=== PATIENT | female | born 1980 | race African-American/Black ===

== ENCOUNTER 2024-09-26 19:20 | Emergency (ER) | payer OTHER, MEDICAID, SELFPAY ==
--- NOTE | ~2024-09-26 | XR_ITS ---
3 VIEWS LUMBAR SPINE Ordering provider: Lawrence Baez MD History: . fall . Comparison: None. FINDINGS: VERTEBRAL BODIES: No visible fracture or subluxation. Possible spondylolysis at the level of L5-S1. DISK SPACES: Normal. SOFT TISSUES: Normal. IMPRESSION: No acute osseous abnormality lumbar spine. Reviewed, dictated and finalized at location A.
--- NOTE | ~2024-09-26 | XR_ITS ---
XR elbow RT min 3V Ordering provider: Lawrence Baez MD History: . fall . Comparison: None. FINDINGS: BONES: No acute fracture or dislocation. JOINT SPACES: Normal. SOFT TISSUES: Unremarkable. No definite joint effusion. IMPRESSION: No acute osseous abnormality of the right elbow. Reviewed, dictated and finalized at location A.
--- NOTE | 2024-09-26 19:43 | PC.NURSE ---
Patient in waiting room eating chips and drinking Tea while in her sitting in wheelchair
[2024-09-26 19:55] VITALS: BP 139/82; PULSE 75; RESP 16; TEMP 36.6; O2SAT 100
--- NOTE | 2024-09-26 20:01 | PC.NURSE ---
Patient noted to be again eating food from vending machine-another visitor obtained for her
--- NOTE | 2024-09-26 20:09 | PC.NURSE ---
Per ems report nightclub manager met us with security at the door of [facility] upon our arrival and told us that they had already watched the security footage and the patient sat down, then laid herself down on the floor. Pt did urinate on the floor while laying there. Pt also slept the entire way from [facility] to hospital and upon backing in to the ambulance bay pt woke up and said you all got any pain pills? You wouldnt believe the amounts of pain i'm in.
--- NOTE | 2024-09-26 20:10 | PC.NURSE ---
Patient visualized on security camera getting out of wheelchair without assistance and walking with steady gait into bathroom
--- NOTE | 2024-09-26 20:28 | PCCCNOTE ---
PT REQUESTED ALL THE PAIN PILLS NUMEROUS TIMES IN RADIOLOGY
--- NOTE | 2024-09-26 20:32 | PC.NURSE ---
Patient taken via wheelchair outside per her request
[2024-09-26 22:04] VITALS: BP 128/70; PULSE 83; RESP 18; O2SAT 100
--- OUTSIDE RECORDS SUMMARY | 2024-09-26 22:25 | XMS_ITS | Continuity of Care Document ---
Author Name Nino Prescott Address [address] [facility] [place] [address] Organization Unknown Address [address] [place] [address] Medications No known medications Problems No known problems
--- OUTSIDE RECORDS SUMMARY | 2024-09-26 22:25 | XMS_ITS ---
Author Organization [facility] Address [address] [place] [address] Care Team Providers Care Aerotriangulation Specialist Name Role Phone Toña Bowen Primary Care Provider REASON FOR VISIT New Patient Psych Eval Encounters Encounter Location Date Provider Diagnosis [address] [place] [address] 08/14/2024 Toña Bowen Plan Of Treatment No Information Progress Notes * Ingrid RENNEReDOB:1980 (43 yo M)Acc No.[id number]:08/14/2024 UNLOCKED PROGRESS NOTE Patient: Melinda GALDAMEZ Provider: ILDEFONSO Bowman, COMMUNICATIONS SUPERVISOR, MANAGER HUMAN RESOURCES-C :1980 A ge:43 Y S ex:Male Date:08/14/2024 Address:[address] [place], [place] [id number] Subjective: * Chief Complaints: * 1 . New Patient Psych Eval. * Medical History: Objective: * Vitals: Assessment: Plan: * Treatment: * * Electronic signature of Joshua Bowen [id number] on 09/26/2024 at 10:25 PM CDT Sign off status: Pending * Provider: ILDEFONSO Bowman, COMMUNICATIONS SUPERVISOR, MANAGER HUMAN RESOURCES-C Date: 0 08/14/2024 Generated for Printi ng/Falizabethg/eTransmitting on: 09/26/2024 10:25 PM CDT
--- OUTSIDE RECORDS SUMMARY | 2024-09-26 22:25 | XMS_ITS | Continuity of Care Document ---
Author Name PrescottNino Address [address] [place], [place] [id number] [place] [address] Organization Unknown Address [address] [place], [place] [id number] [place] [address] Medications No known medications Problems No known problems
--- OUTSIDE RECORDS SUMMARY | 2024-09-26 22:25 | XMS_ITS | Patient Health Record ---
Author Organization [facility] Address [address] [place] [address] Care Team Providers Care Saddle Tree Stitcher Name Role Phone AndrésToña godinez Primary Care Provider [phone] Adrian Harp Unavailable [phone] Mariza Canas Unavailable [phone] Reason For Referral No Information Medications Medication SIG (Take, Route, Fr equency, Duration) Notes Start Date End Date Status Sertraline HCl 50 MG 1 tablet Orally Onc e a day for 30 day(s) 09/09/2024 Active busPIRone HCl 7.5 MG 1 tablet Orally Twi ce a day for 30 days 09/09/2024 Active Problems Problem Type SNOMED Code ICD Code Onset Dates Problem Status W/U Status Risk Notes Problem Insomnia (113903955) Insomnia (G47.00) Active confirmed Problem Generalized anxiety disorder (84336272) ZULEIKA (generalized anxiety disorder) (F41.1) Active confirmed Problem Bipolar disorder (55385038) Bipolar 1 disorder, depressed (F31.9) Active confirmed Vital Signs Height 4ft 11in in 09/09/2024 Weight 189 lbs 09/09/2024 BMI 38.17 kg/m2 09/09/2024 Encounters Encounter Location Date Provider Diagnosis [address] [place] [address] 09/09/2024 Mariza Canas Bipolar 1 disorder, depressed F31.9 ; ZULEIKA (generalized anxiety disorder) F41.1 ; Insomnia G47.00 and Homelessness Z59.[address] [place] [address] 08/14/2024 Toña Bowen Assessments Encounter Date Diagnosis (ICD Code) Assessment Notes Treatment Notes Treatment Clinical Notes Section Notes 09/09/2024 ZULEIKA (generalized anxiety disorder) (ICD-10 - F41.1) 09/09/2024 Bipolar 1 disorder, depressed (ICD-10 - F31.9) 09/09/2024 Insomnia (ICD-10 - G47.00) 09/09/2024 Homelessness (ICD-10 - Z59.00) Plan Of Treatment No Information Insurance Providers Payer Name Payer Address Payer Phone Subscriber Number Group Number Insured Name Patient Relationship to Insured Coverage Start Date Coverage End Date [facility] Claims Department [address] [place] [phone] [id number] Melinda Sidhu Self - patient is the insured 3 [place] [employer] [facility] [employer] [facility] [address] [place] [phone] [id number] Melinda Sidhu Self - patient is the insured 3 Medical (General) History Medical History History ICD Code bipolar anxiety depression Surgical History Surgery Date(Month/Year) retna r eye nose surgy Hospitalization History Reason Date(Month/Year) [facility]chette 1wk Mental eval [facility] SI mental eval
--- NOTE | 2024-09-26 22:32 | ED.FALL ---
HPI - Fall General Chief Complaint: Fall Stated Complaint: Fall, injury to lower back and right elbow Time Seen by Provider: 09/26/24 22:12 History of Present Illness HPI Narrative: 43-year-old female presenting to the emergency department after a reported fall. Patient states that she was at [employer] and slipped on a wet patch and fell onto her butt and elbow. Supposedly police were involved as video footage was obtained of the accident because patient was complaining and want this to file a lawsuit and video food was reviewed by EMS and PD and they saw the patient had voluntary to lie down on the ground and then waited for someone to come respond to her, but there was no actual fall or any injury. Patient herself is complaining of back pain and right elbow pain as well as also having extra complaint of potential STD exposure. She is concerned that her boyfriend is cheating on her and she is having vaginal discharge. Denies any . Did not take anything for pain prior to arrival. She has asked for pain pills numerous times to multiple staff members and EMS. Patient is ambulatory here in the emergency department, no signs of any significant injury, no incontinence or neurological complaints. Related Data Allergies Allergy/AdvReac Type Severity Reaction Status Date / Time No Known Allergies Allergy Verified 09/26/24 22:05 Review of Systems Review of Systems: As reviewed above in HPI Exam Narrative: GENERAL: [Well-appearing, well-nourished, and in no acute distress.] HEAD: [Normocephalic, atraumatic.] EYES: [PERRLA and EOMI.] ENT: Nares clear, no rhinorrhea or epistaxis. Mucous membranes moist. NECK: Supple. CHEST: [Clear to auscultation. No respiratory distress.] HEART: [Regular rate and rhythm]. No murmur heard. [Normal peripheral pulses.] ABDOMEN: [Soft, nondistended], [nontender], [No rigidity or guarding] EXTREMITIES: Normal range of motion. [No edema.] SKIN: Warm, dry, no rash. NEURO: [No focal deficits]. Alert and oriented [x3.] Ambulatory in the emergency depart without difficulty, no weakness or sensory deficits, no saddle anesthesia PSYCH: [Normal mood and affect.] Course Vital Signs Vital signs: Vital Signs Temperature 36.6 C 09/26/24 19:55 Pulse Rate 75 09/26/24 19:55 Respiratory Rate 16 09/26/24 19:55 Blood Pressure 139/82 09/26/24 19:55 Pulse Oximetry 100 09/26/24 19:55 Oxygen Delivery Room Air 09/26/24 19:55 Temperature 36.6 C 09/26/24 19:55 Pulse Rate 83 09/26/24 22:04 Respiratory Rate 18 09/26/24 22:04 Blood Pressure 128/70 09/26/24 22:04 Pulse Oximetry 100 09/26/24 22:04 Oxygen Delivery Room Air 09/26/24 19:55 MDM - Fall MDM Narrative Medical decision making narrative: 43-year-old female presenting to the emergency department for complaints of low back pain and right elbow pain after a supposed fall. Patient tells me that she slipped on a wet patch and fell at a local [employer] however EMS report and police report state that they viewed the footage of the incident and patient appeared to a voluntarily of the ground without without any falls and did not appear to injure herself. Patient is requesting pain pills. She is also requesting STD testing as separate complaint. She endorses vaginal discharge but no dysuria. She is afebrile. She has no other complaints at this time besides back pain elbow pain. She has no neurological complaints, no neurological findings on examination and given that there was supposedly no actual trauma suspicion for any acute process is very low and suspected malingering is higher. X-rays were obtained of the lumbar spine as well as right elbow. Gonorrhea chlamydia and Trichomonas testing was ordered as well as testing. She was given Tylenol for pain, Rocephin and metronidazole and waiting test prior to initiation of doxycycline versus of azithromycin. I discussed with the patient and she will have to follow up with a OBGYN and primary doctor for the results and we will not get them back in a timely manner. Patient's x-rays showed no acute osseous abnormalities or fractures. Patient will be discharged with referral to a primary care doctor. Medical Records Attestation: I reviewed the patient's medical records. Lab Data Attestation: I reviewed the patient's lab results. Labs: Lab Results 09/26/24 09/26/24 Range/Units 22:34 22:36 Urine Color Yellow (Yellow) Urine Appearance Clear (Clear) Urine pH 6.5 (5.0-9.0) Ur Specific [place] 1.020 (1.001-1.035) Urine Protein Trace (Negative) mg/dL Urine Glucose (UA) 3+ H (Negative) mg/dL Urine Ketones Negative (Negative) mg/dL Ur Blood (Man) 3+ H (Negative) Urine Nitrate Negative (Negative) Urine Bilirubin Negative (Negative) Urine Urobilinogen 0.2 (<2.0) mg/dL Leukocyte Esterase Rfl Negative (Negative) ANDRADE/UL Urine RBC 0-2 (0-2) /hpf Urine WBC 0-5 (0-3) /hpf Ur Squamous Epith Cells None seen (Few) /hpf Urine Bacteria Rare /hpf Urine Casts 0-2 POC Urine HCG, Qual Negative (Negative) C. trachomatis (PCR) Not detected (NOT DETECTE) N. gonorrhoeae (PCR) Not detected (NOT DETECTE) T. vaginalis (PCR) Not detected (NOT DETECTE) Imaging Data Attestation: I personally reviewed and interpreted this imaging study as follows: My impression: Impressions Lumbar Spine X-Ray 09/26/24 21:02 IMPRESSION: No acute osseous abnormality lumbar spine. Elbow X-Ray 09/26/24 21:04 IMPRESSION: No acute osseous abnormality of the right elbow. Discharge Plan Discharge Clinical Impression: Fall from slipping, Back pain, Possible exposure to STD Patient Disposition: Home Condition: Stable Instructions: Antibiotic Form, Chlamydia (ED), Safe Sex Practices (ED), Gonorrhea (ED), Trichomoniasis (ED), Back Pain (ED) Additional Instructions: Follow-up with the primary care provider or your OBGYN to get the results of your STD testing. We have treated empirically and we will send you home with antibiotics. Take Tylenol and ibuprofen for your back pain. Your x-rays were negative for any fractures. Return with any emergent concerns. Take Tylenol and ibuprofen for pain control. Return to the ER if you have increased pain in your back, you develop lower extremity weakness/numbness/paralysis, you have numbness or tingling in your private parts, or you are unable to control your ability to urinate/stool. Patient Language: [place] Island[place] Prescriptions: New doxycycline hyclate 100 mg capsule 100 mg PO BID 7 Days Qty: 14 0RF Follow-up/Referrals: PHYSICIAN,TEA AND SPICE SUPERVISOR [Primary Care Provider] - Easton Borrego MD [Physician] - 1 Week (PCP establish) Time of Disposition: 22:52
[2024-09-26 22:38] LABS: BEDSIDEPREGUCG Negative (Negative)
[2024-09-26 22:44] LABS: Add Urine Microscopic? YES; Appearance Urine Clear (Clear); Bacteria Urine Rare /hpf; Bilirubin Urine Negative (Negative); Blood Urine 3+ (Negative); Color Urine Yellow (Yellow); Glucose Urine UA 3+ mg/dL (Negative); Ketones Urine Negative (Negative); Leukocyte Esterase Ur Negative LEU/UL (Negative); Nitrate Urine Negative (Negative); Non Pathogenic Casts 0-2; Protein Urine Trace mg/dL (Negative); RBC Urine 0-2 /hpf (0-2); Squamous Epithelial Cell Urine None Seen /hpf (Few); Urobilinogen Urine 0.2 mg/dL (<2.0); WBC Urine 0-5 /hpf (0-3); pH Urine 6.5 (5.0-9.0)
[2024-09-26] MEDS: metroNIDAZOLE 500 MG TABLET 2000 MG PO (23:16)
[2024-09-26] MEDS: DOXYCYCLINE HYCLATE 100 MG TABLET PO (23:16)
[2024-09-26] MEDS: ACETAMINOPHEN 500 MG TABLET 1000 MG PO (23:16)
[2024-09-26] MEDS: cefTRIAXone 1 GM VIAL 0.5 GM IM (23:16)
[2024-09-26] MEDS: LIDOCAINE 1% LOCAL INJ 10 ML VIAL (23:17)
[2024-09-26 23:47] LABS: Trichomonas Vag PCR NOT DETECTED (NOT DETECTE)
[2024-09-27 00:09] LABS: Chlamydia trachomatis NOT DETECTED (NOT DETECTE); Neisseria gonorrhoeae PCR NOT DETECTED (NOT DETECTE)
== END 2024-09-26 23:20 | disposition home or self-care (01) ==
PROVIDERS: Emergency Provider Student in an Organized Health Care Education/Training Program
DX: M54.50 Low back pain, unspecified (principal); Z11.3 Encounter for screening for infections with a predominantly sexual mode of transmission; W01.0XXA Fall on same level from slipping, tripping and stumbling without subsequent striking against object, initial encounter
CPT/HCPCS: 72100; 73080; 81001; 81025; 87491; 87591; 87661; 96372; 99284; A9270; J0696; J2003